=== PATIENT | female | born 1955 | race Caucasian/White ===

== ENCOUNTER 2022-01-06 01:19 | Emergency (ER) | payer BC ==
[~2022-01-06] VITALS: Ht 162.6 cm; Wt 116.8 kg
[2022-01-06] MEDS ORDERED: ONDANSETRON ODT8 MG PO (02:42)
[2022-01-06] MEDS ORDERED: KETOROLAC TROME10 MG PO (02:42)
[2022-01-06] MEDS ORDERED: PERCOCET 5-3251 EACH PO (02:42)
[2022-01-06] MEDS ORDERED: FLOMAX0.4 MG PO (02:42)
== END 2022-01-06 04:34 | disposition home or self-care (01) ==
LOC: ED 01:19
DX: N13.2 Hydronephrosis with renal and ureteral calculous obstruction (principal); Z88.1 Allergy status to other antibiotic agents
CPT/HCPCS: 36415; 74176; 80048; 81001; 85025; 96374; 96375; 96376; 99284-25; A9270; J1170; J1885; J2270; J2405; J7030